=== PATIENT | male | born 1975 | race Caucasian/White ===

== ENCOUNTER 2021-05-31 13:33 | Emergency (ER) | payer MEDICAID ==
[~2021-05-31 13:33] MED LIST: IBUP-15 PO; NAPR-243 PO; TRM50T PO
[2021-05-31] MEDS ORDERED: BENZ100C18 PO (15:47)
[2021-05-31] MEDS ORDERED: ONDA4TAB11 PO (15:47)
== END 2021-05-31 14:46 | disposition left against medical advice (07) ==
LOC: EDUNIT# 13:33 → ER 13:35
DX: R06.02 Shortness of breath (principal); Z20.822 Contact with and (suspected) exposure to COVID-19

== ENCOUNTER 2021-05-31 15:11 | Emergency (ER) | payer MEDICAID ==
[~2021-05-31] VITALS: Ht 182 cm; Wt 131.0 kg
[2021-05-31] MEDS ORDERED: ONDA4TAB11 PO (15:47)
[2021-05-31] MEDS ORDERED: BENZ100C18 PO (15:47)
--- NOTE | 2021-05-31 15:48 | ED Cough/URI ---
General Chief Complaint: COVID19 Suspect/Confirmed Stated Complaint: COVID EXPOSURE Source: patient Exam Limitations: no limitations History of Present Illness Date Seen by Provider: May 31, 2021 Time Seen by Provider: 15:26 Initial Comments Patient to the ER by private conveyance with his significant other chief complaint is been doing some remodeling at thought he had a cough related to the insulation in his house. He and his significant other were tested for COVID and he would like a retest because it read positive and he has not had any fevers nausea vomiting chills diarrhea or constipation. He did get Moderna COVID-19 vaccination but no booster shot. Allergies and Home Medications Allergies Coded Allergies: No Known Drug Allergies (Unverified , 03/12/10) Patient Home Medication List Home Medication List Reviewed: Yes Ibuprofen (Ibuprofen M) 200 Mg Tablet, 800 MG PO HS, (Reported) Entered as Reported by: KENIA JETT on 03/12/10 1619 Naproxen (Naprosyn) 500 Mg Tablet, 1 EACH PO BID, (Reported) Entered as Reported by: KENIA JETT on 03/12/10 1619 Tramadol Hcl (Ultram) 50 Mg Tab, 50 MG PO Q4-6HOURS PRN Prescribed by: LIO BELTRAN on 03/12/10 1830 Review of Systems Review of Systems Constitutional: No chills, No diaphoresis EENTM: No ear discharge, No ear pain Respiratory: cough; No phlegm, No short of breath Cardiovascular: No Hx of Intervention, No palpitations Gastrointestinal: No abdominal pain, No nausea, No vomiting Genitourinary: No discharge, No dysuria Musculoskeletal: No back pain, No joint pain All Other Systems Reviewed Negative Unless Noted: Yes Past Xuqjqpr-Rnkqet-Hfsymf Hx Patient Social History Tobacco Use?: Yes Tobacco type used: Cigarettes Smoking Status: Current Everyday Smoker Substance use?: No Alcohol Use?: No Pt feels they are or have been: No Immunizations Up To Date First/Initial COVID19 Vaccinat: JAN 2021 COVID19 Vaccine Delivery Mgr: MODERNCarmen Past Medical History Surgery/Hospitalization HX: PMH: ADHD, DM, BACK PAIN Physical Exam Capillary Refill : Height: '" Weight: lbs. oz. kg; BMI Method:Stated General Appearance: WD/WN, no apparent distress Eyes: Bilateral Eye Normal Inspection, Bilateral Eye PERRL, Bilateral Eye EOMI HEENT: PERRL/EOMI, normal ENT inspection, pharynx normal Respiratory: lungs clear, normal breath sounds, no respiratory distress, no accessory muscle use Cardiovascular: normal peripheral pulses, regular rate, rhythm Progress/Results/Core Measures Suspected Sepsis SIRS Temperature: Pulse: Respiratory Rate: Blood Pressure / Mean: Results/Orders My Orders Orders - ARNAUD HENRY Coronavirus Sars-Cov-2 So 2018 (05/31/21 15:35) Vital Signs/I&O Capillary Refill : Departure Impression Primary Impression: Person under investigation for COVID-19 Disposition: 01 HOME, SELF-CARE Condition: Stable Departure-Patient Inst. Decision time for Depature: 15:46 Referrals: [facility] [place]) Primary Care Physician Patient Instructions: COVID-19 Tests Add. Discharge Instructions: Drink lots of fluids. Tylenol 1000 mg every 8 hours necessary for pain. Ibuprofen 800 mg or 8 hours necessary for pain. Humidifiers and vapor rubs can be helpful for cough. Ondansetron 1 tablet every 6 hours under the tongue as needed for nausea and/or vomiting. Tessalon Perles 1 capsule every 6 hours necessary for cough. You are to remain on isolation for the next 7 days as long as her symptoms are mild and you not having any fever for the last day then you can get a COVID-19 test through the health department. If it is negative then you are off isolation and just need to wear a mask for another 5 days. All discharge instructions reviewed with patient and/or family. Voiced understanding. Scripts Benzonatate (TESSALON PERLES) 100 Mg Capsule 100 MG PO Q6H PRN for COUGH, #20 CAP 0 Refills Prov: ARNAUD HENRY 05/31/21 Ondansetron (Ondansetron Odt) 4 Mg Tab.rapdis 4 MG PO Q6H PRN for NAUSEA/VOMITING, #8 TAB 0 Refills Prov: ARNAUD HENRY 05/31/21 Work/School Note: Work Release Form Date Seen in the Emergency Department: May 31, 2021 Return to Work: Jun 07, 2021 Restrictions: Return-No Fever (24hrs) Other Restrictions Listed Below: Off isolation if fever free and negative COVID test on 06/06/2021. Restrictions: Wear a mask 5 days after off isolation. ARNAUD HENRY May 31, 2021 15:48
[2021-05-31 15:54] VITALS: BP 113/85
== END 2021-05-31 15:53 | disposition home or self-care (01) ==
LOC: EDUNIT# 15:11 → ER 15:13
DX: Z20.822 Contact with and (suspected) exposure to COVID-19 (principal); E11.9 Type 2 diabetes mellitus without complications; F17.210 Nicotine dependence, cigarettes, uncomplicated
CPT/HCPCS: 87635; 99283

== ENCOUNTER → 2022-01-20 | Outpatient (CLI) | payer OTHER ==
[~2022-01-20] MED LIST changes: +BENZ100C18 PO; +ONDA4TAB11 PO
--- NOTE | 2022-01-20 14:42 | Diagnostic Imaging Report ---
EXAMINATION: Orbits for foreign body at 1436 hours. INDICATION: Metal check for MRI. TECHNIQUE: AP and lateral views were obtained. COMPARISON: There are no prior studies available for comparison. FINDINGS: There is no radiopaque foreign body overlying the orbits. The osseous structures are intact. There is partial opacification of the left maxillary antrum. Most likely, this is due to sinusitis. IMPRESSION: 1. There is no evidence for radiopaque foreign body overlying the orbits. 2. There is left maxillary sinusitis. Dictated by: Dictated on workstation # [id number]
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
== END ==
LOC: RAD 14:45
PROVIDERS: ATTEND Physician Assistant
DX: M47.816 Spondylosis without myelopathy or radiculopathy, lumbar region (principal); M47.817 Spondylosis without myelopathy or radiculopathy, lumbosacral region; M51.26 Other intervertebral disc displacement, lumbar region; M51.27 Other intervertebral disc displacement, lumbosacral region; M51.36 Other intervertebral disc degeneration, lumbar region; M51.37 Other intervertebral disc degeneration, lumbosacral region; M48.061 Spinal stenosis, lumbar region without neurogenic claudication; M48.07 Spinal stenosis, lumbosacral region
CPT/HCPCS: 72148

== ENCOUNTER 2022-01-26 15:09 | Emergency (ER) | payer OTHER ==
[~2022-01-26] VITALS: Ht 177.8 cm; Wt 104.3 kg
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
[2022-01-26 16:50] LABS: BASOPHILS # (AUTO) 0.1 10^3/uL (0.0-0.1); BASOPHILS % (AUTO) 1 % (0-10); EOSINOPHILS # (AUTO) 0.1 10^3/uL (0.0-0.3); EOSINOPHILS % (AUTO) 2 % (0-10); HEMATOCRIT 45 % (40-54); HEMOGLOBIN 15.5 g/dL (13.3-17.7); LYMPHOCYTES # (AUTO) 3.1 10^3/uL (1.0-4.0); LYMPHOCYTES % (AUTO) 38 % (12-44); MEAN CORPUSCULAR HEMOGLOBIN 29 pg (25-34); MEAN CORPUSCULAR HGB CONC 35 g/dL (32-36); MEAN CORPUSCULAR VOLUME 84 fL (80-99); MEAN PLATELET VOLUME 8.8 fL (9.0-12.2); MONOCYTES # (AUTO) 0.9 10^3/uL (0.0-1.0); MONOCYTES % (AUTO) 11 % (0-12); NEUTROPHILS # (AUTO) 4.1 10^3/uL (1.8-7.8); NEUTROPHILS % (AUTO) 49 % (42-75); PLATELET COUNT 358 10^3/uL (130-400); WHITE BLOOD COUNT 8.3 10^3/uL (4.3-11.0)
[2022-01-26 16:58] LABS: ALBUMIN 4.5 GM/DL (3.2-4.5); CHLORIDE 104 MMOL/L (98-107); POTASSIUM 3.6 MMOL/L (3.6-5.0); SODIUM 140 MMOL/L (135-145)
[2022-01-26 16:59] LABS: CALCIUM 9.2 MG/DL (8.5-10.1)
[2022-01-26 17:01] LABS: GLUCOSE 130 MG/DL (70-105); TOTAL PROTEIN 7.8 GM/DL (6.4-8.2)
[2022-01-26 17:02] LABS: CARBON DIOXIDE 24 MMOL/L (21-32)
[2022-01-26 17:03] LABS: BILIRUBIN,TOTAL 1.1 MG/DL (0.1-1.0)
[2022-01-26 17:04] LABS: ALKALINE PHOSPHATASE 62 U/L (40-136)
[2022-01-26 17:05] LABS: CREATININE SERUM 0.82 MG/DL (0.60-1.30); GFR ESTIMATED 110
[2022-01-26 17:06] LABS: BUN/CREATININE RATIO 18
[2022-01-26 17:07] LABS: SALICYLATE < 5.0 MG/DL (5.0-20.0)
[2022-01-26 17:08] LABS: ALANINE AMINOTRANSFERASE 16 U/L (0-55)
[2022-01-26 17:12] LABS: ACETAMINOPHEN < 10 UG/ML (10-30)
[2022-01-26] MEDS ORDERED: KETOROLAC 60 MG/2 ML VIAL IM ONE (18:15)
[2022-01-26] MEDS ORDERED: ORPHENADRINE 60 MG/2 ML (NORFLEX) AMP (ED ONLY) IM ONE (18:15)
[2022-01-26 18:46] LABS: BILIRUBIN,URINE 2+ (NEGATIVE); CLARITY,URINE CLEAR; COLOR,URINE YELLOW; GLUCOSE, URINE (UA) TRACE (NEGATIVE); KETONES,URINE 2+ (NEGATIVE); LEUKOCYTE ESTERASE ,URINE NEGATIVE (NEGATIVE); NITRITE,URINE NEGATIVE (NEGATIVE); PROTEIN,URINE TRACE (NEGATIVE)
[2022-01-26 18:56] LABS: BACTERIA,URINE FEW /HPF; SQUAMOUS EPITHELIAL CELL,UR 0-2 /HPF
[2022-01-26 19:06] LABS: AMPHETAMINE SCREEN, URINE POSITIVE (NEGATIVE); BARBITURATE SCREEN URINE NEGATIVE (NEGATIVE); BENZODIAZEPINES SCREEN URINE NEGATIVE (NEGATIVE); CANNABINOID SCREEN, URINE NEGATIVE (NEGATIVE); COCAINE SCREEN URINE NEGATIVE (NEGATIVE); METHADONE STAT NEGATIVE (NEGATIVE); OPIATE SCREEN URINE NEGATIVE (NEGATIVE); OXYCODONE STAT NEGATIVE (NEGATIVE); PROPOXYPHENE STAT NEGATIVE (NEGATIVE); TRICYCLIC ANTIDEPRESSANTS SCRE NEGATIVE (NEGATIVE)
[2022-01-26 22:07] VITALS: BP 130/85
== END 2022-01-26 22:07 | disposition home or self-care (01) ==
LOC: EDUNIT# 15:09 → ER 15:11
DX: T14.91XA Suicide attempt, initial encounter (principal); F41.9 Anxiety disorder, unspecified; F32.A Depression, unspecified; F15.90 Other stimulant use, unspecified, uncomplicated; Z20.822 Contact with and (suspected) exposure to COVID-19; X83.8XXA Intentional self-harm by other specified means, initial encounter
CPT/HCPCS: 80053; 80306; 81000; 84443; 85025; 87088; 87636; 93005; 99284; G0480 ×3; 36415; 80320; 80329